=== PATIENT | male | born 1995 | race Caucasian/White ===

== ENCOUNTER 2017-12-09 09:26 | Emergency (ER) | payer OTHER, BC ==
[~2017-12-09] VITALS: Ht 177.8 cm; Wt 87.4 kg
[2017-12-09 09:29] VITALS: TEMP 36.8; Ht 177.8 cm; Wt 87.4 kg
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
[2017-12-09 10:17] VITALS: BP 144/80; PULSE 114; O2SAT 97
== END 2017-12-09 10:22 | disposition home or self-care (01) ==
LOC: C.EDB 09:29
DX: R31.9 Hematuria, unspecified (principal); F17.200 Nicotine dependence, unspecified, uncomplicated